=== PATIENT | male | born 1995 | race Caucasian/White ===

== ENCOUNTER 2017-05-19 09:19 | Emergency (ER) | payer BC ==
[2017-05-19 09:31] VITALS: RESP 16; TEMP 97.6
[2017-05-19] MEDS ORDERED: KETOROLAC TROMETHAMINE 30 MG/ML SOL IM ONE (10:17)
[2017-05-19] MEDS ORDERED: KETOROLAC TROMETHAMINE 30 MG/ML SOL ONE (10:18)
[2017-05-19 11:15] VITALS: BP 107/61; PULSE 67; O2SAT 99
== END 2017-05-19 11:00 | disposition home or self-care (01) ==
LOC: ED 09:19
DX: J02.9 Acute pharyngitis, unspecified (principal)
CPT/HCPCS: 87430; 87804; 99283; J1885